=== PATIENT | male | born 1980 | race Caucasian/White ===

== ENCOUNTER 2023-08-11 10:44 | Emergency (ER) | payer OTHER, SELFPAY ==
[2023-08-11 10:45] VITALS: BP 141/74; PULSE 92; RESP 15; TEMP 36.8; O2SAT 97; BMI 25.7
[2023-08-11 11:07] LABS: POC Glucose,Bedside 125 (70-110)
--- NOTE | 2023-08-11 11:18 | CT_ITS ---
FINAL REPORT CLINICAL HISTORY: L facial numb/tingling FINDINGS: Axial images of the head were obtained without contrast. Coronal reformatted images were also obtained.This study was performed with techniques to keep radiation doses as low as reasonably achievable (ALARA). Individualized dose reduction techniques using automated exposure control or adjustment of mA and/or kV according to the patient's size were employed. There is no evidence of intracranial hemorrhage or mass. The ventricular size is within normal limits. There is no evidence of shift of the midline structures. No abnormal extra axial fluid collection is identified. No skull abnormality is seen on the bone window images. There is mild mucosal thickening in the sinuses. IMPRESSION: No acute intracranial abnormality. Reviewed, Interpreted and Dictated by Roland Horton III, MD Transcribed by Apple Warren Authenticated and [facility]
--- NOTE | 2023-08-11 11:18 | CT_ITS ---
FINAL REPORT TECHNIQUE: Thin section axial CT with IV contrast supplemented with multiplanar reconstruction under CT angiogram protocol. 3-D reconstructions were performed. This study was performed with techniques to keep radiation doses as low as reasonably achievable (ALARA). Individualized dose reduction techniques using automated exposure control or adjustment of mA and/or kV according to the patient''s size were employed. CLINICAL HISTORY: L facial numb/tingling FINDINGS: The distal vertebral, basilar and distal internal carotid arteries have an unremarkable appearance. No aneurysm is seen. Major intracranial vessels are patent without significant stenosis. IMPRESSION: There is no significant stenosis or major branch occlusion. Reviewed, Interpreted and Dictated by Roland Horton III, MD Transcribed by Apple Warren Authenticated and [facility]
--- NOTE | 2023-08-11 11:18 | CT_ITS ---
FINAL REPORT TECHNIQUE: Thin section axial CT with IV contrast supplemented with multiplanar reconstruction under CT angiogram protocol. This study was performed with techniques to keep radiation doses as low as reasonably achievable (ALARA). Individualized dose reduction techniques using automated exposure control or adjustment of mA and/or kV according to the patient''s size were employed. NASCET criteria was utilized during interpretation. CLINICAL HISTORY: L facial numb/tingling FINDINGS: Aortic arch: Arch shows no significant narrowing. Great vessel origins are widely patent. Right carotid: No significant stenosis is seen of the cervical common or internal carotid artery. Left carotid: No significant stenosis is seen of the cervical common or internal carotid artery. Vertebral: The vertebral arteries are codominant. No significant stenosis is present. IMPRESSION: There is no significant stenosis or major branch occlusion. Reviewed, Interpreted and Dictated by Roland Horton III, MD Transcribed by Apple Warren Authenticated and [facility]
--- NOTE | 2023-08-11 11:19 | XR_ITS ---
FINAL REPORT CLINICAL HISTORY: L facial numb/tingling COMPARISON: None FINDINGS: A single portable view of the chest was obtained. The heart size and pulmonary vascularity are within normal limits. The mediastinum is within normal limits. No acute pulmonary abnormality is identified. The bony thorax is intact. IMPRESSION: No active cardiopulmonary disease. Reviewed, Interpreted and Dictated by Roland Horton III, MD Transcribed by Belkys Hassan Authenticated and [facility]
--- NOTE | 2023-08-11 11:23 | PC.NURSE ---
Dr. Huerta at BS for pt eval
[2023-08-11 11:29] LABS: Chloride 101 mmol/L (98-107); Potassium 3.8 mmoL/L (3.5-5.1); Sodium 137 mmol/L (136-145)
[2023-08-11 11:31] LABS: Basophils # 0.1 K/mm3 (0-0.2); Basophils % 0.3 % (0.1-2.0); Eosinophils # 0.2 K/mm3 (0.0-0.4); Hematocrit 50.2 % (42.0-52.0); Hemoglobin 16.8 g/dL (14.1-18.0); Lymphocytes # 1.7 K/mm3 (0.7-4.5); Lymphocytes % 10.8 % (10-50); Mean Corpuscular HGB Conc 33.4 g/dL (31.8-35.4); Mean Corpuscular Hemoglobin 33.9 pg (27.0-31.2); Mean Corpuscular Volume 101.5 fl (80-94); Mean Platelet Volume 8.1 fl (7.4-10.4); Monocytes # 0.7 K/mm3 (0.1-1.0); Monocytes % 4.7 % (1.7-9.3); Neutrophils % 83.2 % (37.0-80.0); Platelet Count 215 K/mm3 (142-424); Red Blood Count 4.94 M/mm3 (4.60-6.20); White Blood Count 15.6 K/mm3 (4.8-10.8)
[2023-08-11 11:32] LABS: Alanine Aminotransferase 42 U/L (12-78); Albumin Level 4.9 g/dl (3.5-5.0); Albumin/Globulin Ratio 1.8 (1.1-1.8); Alkaline Phosphatase 76 U/L (38-126); Anion Gap 12.8 mEq/L (5-15); Aspartate Amino Transferase 38 U/L (17-59); Bilirubin,Total 0.4 mg/dl (0.2-1.3); Blood Urea Nitrogen 10 mg/dl (9-20); Calcium 9.2 mg/dl (8.4-10.2); Carbon Dioxide 27 mmol/L (22.0-30.0); Creatinine Clearance Estimated 141 mL/min (50-200); Estimated Glomerular Filt Rate 107 ml/min (>60); GFR (African American) 130 ML/MIN (>60); Globulin 2.8 g/dL (1.3-3.2); Glucose 113 mg/dl (74-100); Total Protein,Serum 7.7 g/dl (6.3-8.2)
[2023-08-11 11:33] LABS: MANUAL DIFFERENTIAL MANUAL DIFFERENTIAL (MANUAL DIFF)
--- NOTE | 2023-08-11 11:48 | ECG_ITS ---
APPROVED REPORT Exam: Resting ECG HR:76 bpm ECG Measurements Heart Rate 76 AXES NC 149 P 61 QRSd 101 QRS 71 QT 347 T 74 QTc 377 Conclusion SINUS RHYTHM NORMAL ECG UNCONFIRMED REPORT Electronically signed by : Kahlil Cleveland MD 08/12/2023 09:57:30
[2023-08-11 11:49] LABS: T4 (Thyroxine) 8.4 ug/dl (5.53-11.0)
[2023-08-11 11:53] LABS: Eosinophils % 2 % (0-3); Lymphocytes % 12 % (10-50); Monocytes % 6 % (2-9); Neutrophils % 80 % (42-76); Platelet Estimate Normal; RBC Morphology Normal; Total Cells Counted 100
--- NOTE | 2023-08-11 11:53 | PC.NURSE ---
rounded on pt, no needs at this time
[2023-08-11 12:00] VITALS: BP 120/75; PULSE 87; RESP 22; O2SAT 98
--- NOTE | 2023-08-11 12:00 | HMH.EDGENADL ---
Discharge Plan Disposition Patient Disposition: Home, Self-Care Condition: Good Prescriptions Prescriptions: New prednisone 50 mg tablet 50 mg PO DAILY 7 Days Qty: 7 0RF doxycycline hyclate 100 mg capsule 100 mg PO BID 14 Days Qty: 28 0RF erythromycin 5 mg/gram (0.5 %) ointment 1 applic Eye-Left Q8H Qty: 3.5 0RF Referrals Follow up/Referrals: Provider,Referral, MD [Primary Care Provider] - See instructions Activity Restrictions/Add. Instructions Additional Instructions/Restrictions: You were evaluated in the emergency department today. Please worm picker your prescriptions and take the full course as prescribed. Follow-up with your primary care provider for reassessment over the next 3 days. Return to the emergency department for new or worsening symptoms. Clinical Impressions Clinical Impression: Ruffin's palsy Instructions Patient Instructions: DI for [place] Palsy Discharge ED Provider: Belinda Huerta General Adult HPI General Chief complaint: Neuro Symptoms/Deficit Stated complaint: left side pain on face no change in heart Time Seen by Provider: 08/11/23 11:15 Mode of Arrival: Ambulatory Source of Information: Patient Limitations: No Limitations Description of Symptoms (Recalled from ER Triage Doc. by RN): 42 yo M presents to ED with c/o left sided facial numbness and left eye blurriness. pt reports numbness in left side of face has been ongoing for 2 days. pt reports while he was at work he began to have left vision bluriness. History of Present Illness HPI narrative: This patient is a 42-year-old male who denies significant past medical history presenting to the emergency department for evaluation with concern for left facial numbness and left eye blurriness. Patient states that the left side of his face has been numb for approximately 2 days. Today at work, he noted that his left eye was slightly blurry. Given this, he decided to come in for evaluation. No other concerns noted, such as other numbness, tingling, unilateral weakness, gait abnormality, or other concerns. He has otherwise been well. No significant past medical history, and no history of any significant family history according to patient. Related Data Previous Rx's Medication Instructions Recorded doxycycline hyclate 100 mg capsule 100 mg PO BID 14 days #28 caps 08/11/23 erythromycin 5 mg/gram (0.5 %) eye 1 applic Eye-Left Q8H #3.5 grams 08/11/23 ointment prednisone 50 mg tablet 50 mg PO DAILY 7 days #7 tabs 08/11/23 Allergies Allergy/AdvReac Type Severity Reaction Status Date / Time No Known Allergies Allergy Verified 08/11/23 11:45 [facility] Disclaimer: The information contained in this section may have been updated after the patient was seen, as this information can be updated by other users. Social History Smoking Status: Current every day smoker alcohol intake: never current occupational status: employed Travel in the last 8 weeks: None ROS Obtained: Yes All systems reviewed & no additional complaints except as documented Physical Exam General General appearance: alert and in no apparent distress Head Head exam: atraumatic and normocephalic Eye Eye exam: Present normal appearance, PERRL and EOMI ENT ENT exam: Present normal exam, normal oropharynx, mucous membranes moist and normal external ear exam Neck Neck exam: Present normal inspection, full ROM and trachea midline; Absent tenderness Chest Chest inspection: Present normal inspection and symmetric chest wall rise; Absent tenderness Respiratory Respiratory exam: Present normal lung sounds bilaterally; Absent respiratory distress, wheezes, stridor or accessory muscle use Cardiovascular Cardiovascular exam: Present regular rate and normal rhythm Abdominal Exam Abdominal exam: Present soft; Absent distention, tenderness or guarding Extremities Exam Extremities exam: Present normal inspe
--- NOTE | 2023-08-11 12:10 | PC.NURSE ---
XR AT BEDSIDE
[2023-08-11 13:23] VITALS: BP 126/79; PULSE 80; RESP 16; TEMP 36.8; O2SAT 96
[2023-08-11 13:40] LABS: Thyroid Stimulating Hormone 0.56 uIU/mL (0.465-4.68)
[2023-08-15 23:16] LABS: Lyme B. burgdorferi PCR Blood Negative (Negative)
== END 2023-08-11 13:26 | disposition home or self-care (01) ==
PROVIDERS: Emergency Provider Emergency Medicine
DX: G51.0 Bell's palsy (principal); F17.200 Nicotine dependence, unspecified, uncomplicated; R20.0 Anesthesia of skin; H53.8 Other visual disturbances; D72.829 Elevated white blood cell count, unspecified
CPT/HCPCS: 70450; 70496; 70498; 71045; 80053; 82962; 83735; 84436; 84443; 85007; 85025; 87476; 93005; 99285; Q9967

== ENCOUNTER 2024-02-27 19:10 | Emergency (ER) | payer OTHER, SELFPAY ==
[2024-02-27 19:20] VITALS: BP 149/97; PULSE 76; RESP 18; TEMP 36.6; O2SAT 97; BMI 26.4
--- NOTE | 2024-02-27 19:31 | EXP.UTC ---
Discharge Plan Disposition Patient Disposition: Home, Self-Care Condition: Good Prescriptions Prescriptions: New ibuprofen [IBU] 800 mg tablet 800 mg PO Q8HP PRN (Reason: Moderate Pain) Qty: 30 0RF Referrals Follow up/Referrals: Provider,MD Leanna [Primary Care Provider] - See instructions Jose Luis Strange MD [Staff Physician] - See instructions Activity Restrictions/Add. Instructions Additional Instructions/Restrictions: Drink plenty of fluids. Take tylenol or ibuprofen for pain or fever. I sent in a prescription for ibuprofen 800 mg to your pharmacy. Follow up with your regular doctor. Follow up with general surgery (Dr. Srtange). I put in a referral, but you need to call his office and schedule an appointment. His office phone number will be on this paperwork. GO TO THE ER FOR ANY WORSENING SYMPTOMS Clinical Impressions Clinical Impression: Hernia, inguinal, left Instructions Patient Instructions: DI for Groin Hernia, Groin Hernia -- Adult Discharge ED Provider: Zane Lund [facility] General Stated complaint: abd pain Time Seen by Provider: 02/27/24 19:31 History of Present Illness Provider Complaint: He states that for the past 2 weeks he has had left sided groin pain and intermittent left sided abdominal pain. Related Data Previous Rx's Medication Instructions Recorded ibuprofen 800 mg tablet (IBU) 800 mg PO Q8HP PRN Moderate Pain 02/27/24 #30 tabs Allergies Allergy/AdvReac Type Severity Reaction Status Date / Time No Known Allergies Allergy Verified 02/27/24 19:35 [facility] Disclaimer: The information contained in this section may have been updated after the patient was seen, as this information can be updated by other users. Social History (Updated 08/11/23 @ 16:46 by Belinda Huerta DO) Smoking Status: Current every day smoker alcohol intake: never current occupational status: employed Travel in the last 8 weeks: None ROS Obtained: Yes All systems reviewed & no additional complaints except as documented Constitutional Constitutional: Denies chills and Denies fever(s) Eyes Eyes: Denies eye discharge ENT Ears, Nose, Mouth, and Throat: Denies dizziness, Denies otalgia, Denies neck pain and Denies sore throat Cardiovascular Cardiovascular: Denies chest pain Respiratory Respiratory: Denies shortness of breath, Denies chest congestion, Denies cough, Denies stridor and Denies wheezing Gastrointestinal Gastrointestingal: Reports as per HPI; Denies nausea or vomiting Genitourinary Male Genitourinary: Reports as per HPI, Denies difficulty urinating, Denies scrotal swelling, Denies testicular mass and Denies testicular pain Musculoskeletal Musculoskeletal: Reports system reviewed and no additional complaints, except as documented, Denies arthralgias, Denies back pain and Denies neck pain Integumentary/Breasts Skin/Breast: Denies rash Neurologic Neurologic: Denies dizziness and Denies paresthesias Allergic/Immunologic Allergic/Immunologic: Denies wheezing Physical Exam General General appearance: alert and in no apparent distress Head Head exam: atraumatic, normocephalic and normal inspection Eye Eye exam: Present normal appearance, PERRL and EOMI ENT ENT exam: Present normal exam, normal oropharynx, mucous membranes moist, TM's normal bilaterally and normal external ear exam Neck Neck exam: Present normal inspection, full ROM and trachea midline; Absent meningismus or lymphadenopathy Chest Chest inspection: Present normal inspection and symmetric chest wall rise; Absent tenderness Respiratory Respiratory exam: Present normal lung sounds bilaterally; Absent respiratory distress Cardiovascular Cardiovascular exam: Present regular rate and normal rhythm; Absent JVD Abdominal Exam Abdominal exam: Present soft and normal bowel sounds; Absent distention, tenderness or guarding exam: Present normal testicular lie; Absent testicular tenderness or scrotal swelling Expanded Exam exam: Present inguinal hernia Extremities Exam Extremities exam: Present normal inspection, full ROM and normal capillary refill; Absent calf tenderness Back Exam Back exam: Present normal inspection; Absent tenderness Neurological Exam Neurological exam: Present alert and oriented X3 Psychiatric Psychiatric exam: Present normal affect and normal mood Skin Skin exam: Present warm, dry, intact and normal color Lymphatic Lymphatic Findings: no adenopathy Medical Decision Making Medical Records Medical records reviewed: No I reviewed the patient's medical records. Jorge Inquiry Pt receiving controlled substance: No Lab Data Lab results reviewed: Yes I reviewed the patient's lab results.
[2024-02-27 19:47] LABS: Apearance,Urine Clear (Clear); Color,Urine Dark Yellow (Yellow)
[2024-02-27 19:48] LABS: Bilirubin,Urine Negative (Negative); Blood, Urine Negative (Negative); Glucose,Urine (UA) Negative (Negative); Ketones,Urine Negative (Negative); Protein,Urine Negative (Negative); UTC Leukocyte Esterase,Urine Negative (Negative); UTC Nitrate,Urine Negative (Negative); Urobilinogen,Urine 0.2 EU/dl (0.2)
[2024-02-27 20:17] VITALS: BP 149/97; PULSE 76; RESP 18; TEMP 36.6; O2SAT 97
== END 2024-02-27 20:17 | disposition home or self-care (01) ==
PROVIDERS: Emergency Provider Nurse Practitioner Family
DX: R10.32 Left lower quadrant pain (principal); K40.90 Unilateral inguinal hernia, without obstruction or gangrene, not specified as recurrent
CPT/HCPCS: 81003; 99204; 99212; G0463

== ENCOUNTER 2024-03-13 15:18 | Outpatient (CLI) | payer OTHER, SELFPAY ==
[2024-03-13 15:25] LABS: Microscopic, Urine URINE MICROSCOPIC (MICROSCOPIC)
[2024-03-13 16:19] LABS: Basophils # 0.1 K/mm3 (0-0.2); Basophils % 0.7 % (0.1-2.0); Eosinophils # 0.2 K/mm3 (0.0-0.4); Eosinophils % 2.1 % (0.1-12.0); Lymphocytes # 2.5 K/mm3 (0.7-4.5); Lymphocytes % 31.8 % (10-50); Mean Corpuscular HGB Conc 32.6 g/dL (31.8-35.4); Mean Corpuscular Hemoglobin 34.5 pg (27.0-31.2); Mean Corpuscular Volume 105.6 fl (80-94); Mean Platelet Volume 8.4 fl (7.4-10.4); Monocytes # 0.6 K/mm3 (0.1-1.0); Monocytes % 7.8 % (1.7-9.3); Neutrophils # 4.5 K/mm3 (1.8-7.8); Neutrophils % 57.5 % (37.0-80.0); Platelet Count 214 K/mm3 (142-424); Red Blood Count 4.93 M/mm3 (4.60-6.20); Red Cell Distribution Width 13.7 % (11.5-17.5); White Blood Count 7.7 K/mm3 (4.8-10.8)
[2024-03-13 16:32] LABS: Anion Gap 8.4 mEq/L (5-15); Blood Urea Nitrogen 13 mg/dl (9-20); Calcium 10.1 mg/dl (8.4-10.2); Carbon Dioxide 32 mmol/L (22.0-30.0); Chloride 106 mmol/L (98-107); Estimated Glomerular Filt Rate 107 ml/min (>60); GFR (African American) 129 ML/MIN (>60); Glucose 91 mg/dl (74-100); Potassium 5.4 mmoL/L (3.5-5.1); Sodium 141 mmol/L (136-145)
[2024-03-13 17:02] LABS: Appearance,Urine CLEAR (Clear); Bilirubin,Urine Negative (Negative); Blood, Urine Negative (Negative); Color,Urine YELLOW (Yellow); Glucose,Urine (UA) Negative (Negative); Ketones,Urine Negative (Negative); Leukocyte Esterase,Urine Negative (Negative); Nitrate,Urine Negative (Negative); Protein,Urine Negative (Negative); Urobilinogen,Urine 0.2 EU/dl (0.2)
[2024-03-13 19:45] LABS: Squamous Epithelial Cell,Urine Occasional #/hpf (0-5)
== END 2024-03-13 23:59 | disposition home or self-care (01) ==
LOC: LAB 15:19
PROVIDERS: Visit Provider Surgery
DX: K40.90 Unilateral inguinal hernia, without obstruction or gangrene, not specified as recurrent (principal)
CPT/HCPCS: 36415; 80048; 81001; 85025

== ENCOUNTER 2024-03-28 07:29 | Day surgery (SDC) | payer OTHER, SELFPAY ==
[2024-03-26 14:10] VITALS: BMI 26.1
[2024-03-28] VITALS (10 sets, daily range): BP systolic 113–134; BP diastolic 56–83; PULSE 61–78; RESP 16–20; TEMP 36.3–36.6; O2SAT 95–100; BMI 26.1
[2024-03-28] MEDS: LACTATED RINGERS 1000ML 1,000 ML 25 ML IV (07:40)
--- NOTE | 2024-03-28 08:30 | P.PNANES_ITS ---
[facility] Disclaimer: The information contained in this section may have been updated after the patient was seen, as this information can be updated by other users. Surgical History (Updated 03/13/24 @ 14:33 by ADRIEL Johns) History of wisdom tooth extraction History of vasectomy Social History (Updated 03/28/24 @ 07:41 by Pauline Drake RN) Smoking Status: Current every day smoker alcohol intake: never substance use type: marijuana current occupational status: employed Travel in the last 8 weeks: None [facility] Anesthesia Checklist Patient Identification Patient Identification: Arm Band Structural Data Admitted From: Home Planned Operative Procedure/s: Left Open Inguinal Hernia Repair Consent for Planned Operative Procedure(s) Verified: Yes Verified Documents: Surgical Consent and History and Physical NPO Status Verified Time NPO: 00:00 Additional verifications Anesthesia Reactions: No Hx Blood Transfusions: No Blood Transfusion Reaction: No Airway Assessment Mallampati Score:: Class II C-Spine Mobility Assessed: Yes TMJ Mobility Assessed: Yes Dentition: Good Dentition Neurological Assessment Level of Consciousness: Awake, Alert and Appropriate Anesthesia Plan Anesthesia Risk discussed: Yes Anesthesia Plan: Verified ASA Class: II Anesthesia Type: General
[2024-03-28] MEDS: CEFAZOLIN SODIUM 2 GM in 0.9 % SODIUM CHLORIDE 100 ML IV (09:01)
[2024-03-28] MEDS: LIDOCAINE 1% 20ML MDV 20 ML (09:21)
--- NOTE | 2024-03-28 10:52 | P.OP_ITS ---
Date of procedure: 03/28/24 Pre-op Diagnosis:: Left inguinal hernia Post-op Diagnosis:: Same Procedure performed:: Open left inguinal hernia repair Surgeon:: Jose Luis Strange MD DRAIN TILE PRESS OPERATOR:: Silviano Miller Anesthesia: ANNA MARIE Estimated blood loss (mL): 15 Operative findings:: Severe soft tissue stranding/chronic inflammatory changes throughout inguinal canal Operative note:: After informed consent was obtained the patient was taken to the operating room and placed in the supine position. General anesthesia was induced and his abdomen and groin/scrotum were prepped and draped in a sterile fashion. After infiltration with local anesthetic an oblique incision was made in the left groin. Electrocautery was utilized to dissect through Rohan's fascia to the level of the external aponeurosis. The external aponeurosis was sharply opened to the level of the external ring. The contents of the canal were carefully elevated. Severe soft tissue thickening/chronic inflammatory changes were noted. A cord lipoma was resected. The hernia sac was carefully elevated and from surrounding tissue with a combination of sharp dissection, blunt dissection, and electrocautery. The hernia sac was returned to the abdominal cavity. An extra-large PerFix plug was secured in position with interrupted Ethibond. The PerFix overlay was then secured to the shelving edge inferiorly and fascial margin superiorly with interrupted Ethibond. The external aponeurosis was reapproximated with running Vicryl suture. Rohan's fascia was closed in the same manner. Skin was then reapproximated with the INSORB stapling device. Dressings were applied and patient was transferred to recovery in stable condition. Condition: stable Disposition: PACU Specimens:: None Complications:: No immediate
--- NOTE | 2024-03-28 11:02 | P.PNANES_ITS ---
[facility] Anesthesia Record Part I Anesthesia Record I Intake, IV Amount: 1,100 Hydration: Adequate Estimated blood loss (mL): 10 Urine output (mL): 100 Blood Products used (#): none Blood Pressure: 128/67 SaO2: 98 Pulse Rate: 66 Airway Patency: Patent Respiratory Rate: 16 Temperature: 97.9 F Patient is:: Drowsy and Stable Stable to PACU at:: 10:50
[2024-03-28 12:36] LABS: Microscopic,Cath URINE MICROSCOPIC (MICROSCOPIC)
[2024-03-28 16:14] LABS: Appearance,Urine/Cath CLEAR (Clear); Bilirubin,Cath Negative (Negative); Blood, Urine/Cath Negative (Negative); Color,Urine/Cath YELLOW (Yellow); Glucose,Urine/Cath (UA) Negative (Negative); Ketones,Urine/Cath Negative (Negative); Leukocyte Esterase,Cath Negative (Negative); Nitrate,Cath Negative (Negative); Protein,Urine/Cath Negative (Negative); Specific Gravity, Urine/Cath >= 1.030 (1.005-1.030); Urobilinogen,Cath 0.2 EU/dl (0.2)
[2024-03-28 18:35] LABS: CA Oxalate Crystals,Ur/Cath 1+ /lpf
[2024-03-29 09:50] VITALS: BP 134/75; PULSE 72; RESP 19; TEMP 36.6; O2SAT 96
--- NOTE | 2024-03-29 09:50 | EXP.ANES.II ---
[facility] Anesthesia Record Part II Anesthesia Record Part II Discharge Time: 11:20 Destination: Surgical Day Care (OP Surgery) PACU nurse assessment reviewed?: Yes Patient Condition:: Good Anesthesia Complications:: None Swallowing reflex intact?: Yes Airway Patency: Patent Cyanosis?: No Blood Pressure: 134/75 SaO2: 96 Respiratory Rate: 19 Pulse Rate: 72 Temperature: 98 F Mental Status: Alert & Oriented Pain level:: 0 Nausea and/or vomitting:: None Intake, IV Amount: 0 Hydration: Adequate
== END 2024-03-28 12:10 | disposition home or self-care (01) ==
PROVIDERS: Visit Provider Surgery
PROC: (CPT 49505; principal; 2024-03-28 09:15)
DX: K40.90 Unilateral inguinal hernia, without obstruction or gangrene, not specified as recurrent (principal)
CPT/HCPCS: 49505; 81001; 96374; J3490; J0690; J1100; J1885; J2250; J2405; J3010; J7120

== ENCOUNTER 2024-07-28 20:30 | Emergency (ER) | payer OTHER, SELFPAY ==
[2024-07-28 20:31] VITALS: BP 118/68; PULSE 78; RESP 16; TEMP 36.9; O2SAT 96; BMI 24.2
[2024-07-28] MEDS: TET/DIPHTH/PERT-ADULT 0.5ML SYRINGE 0.5 ML IM (22:20)
[2024-07-28] MEDS: TETRACAINE 0.5% OPTH SOL 15ML OP (22:36)
[2024-07-28] MEDS: FLUORESCEIN SODIUM 1MG STRIP 1 MG OP (22:36)
[2024-07-28] MEDS: EYE WASH IRRIGATION SOLN 118ML BOTTLE 120 ML OP (22:51)
[2024-07-28] MEDS: ERYTHROMYCIN BASE 1 GM OINT...G. 0.5 GM OP (22:51)
[2024-07-28 22:54] VITALS: BP 118/68; PULSE 78; RESP 18; TEMP 36.9; O2SAT 96
--- NOTE | 2024-07-28 23:12 | HMH.EDGENADL ---
Discharge Plan Disposition Patient Disposition: Home, Self-Care Condition: Good Prescriptions Prescriptions: New erythromycin 5 mg/gram (0.5 %) ointment 1 applic ophthalmic (eye) Q6H 7 Days Qty: 3.5 0RF Referrals Follow up/Referrals: Provider,Referral, MD [Primary Care Provider] - See instructions Activity Restrictions/Add. Instructions Additional Instructions/Restrictions: You were seen for a corneal abrasion. Please call Dr. Agee at [address] [place] [address] tomorrow to schedule a follow up appointment for tomorrow. Return to ED if you have any change in vision. Clinical Impressions Clinical Impression: Abrasion, corneal Instructions Patient Instructions: DI for Corneal Abrasion Print Language Print Language: Stateless Discharge ED Provider: Satya Sigala General Adult HPI <TRISH Sprague - Last Filed: 07/28/24 23:17> General Chief complaint: Eye Problems Stated complaint: AO 07/28/24 1730 metal in right eye Time Seen by Provider: 07/28/24 21:35 Mode of Arrival: Ambulatory Source of Information: Patient Limitations: No Limitations Description of Symptoms (Recalled from ER Triage Doc. by RN): Patient ambulatory to ED with complaints of metal to right eye approx 1700. Patient was grinding metal when a piece of metal flew into right eye. Patient denies loos of vision but irritation and blurryness noted. 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 He reports that he was wearing safety goggles however the object went over the goggles. He reports that he did irrigate the eye in the shower and applied some saline drops. He is unsure when his last tetanus was. Denies any fevers or vomiting. complaint: eye injury Onset (ago): hour(s) Location: eyes (right) Radiation: non-radiation Severity: mild Consistency: constant Relieving factors: none Exacerbating factors: none Treatments prior to arrival: none Related Data Previous Rx's ?Medication ?Instructions ?Recorded erythromycin 5 mg/gram (0.5 %) eye 1 applic ophthalmic (eye) Q6H 7 07/28/24 ointment days #3.5 grams Allergies Allergy/AdvReac Type Severity Reaction Status Date / Time No Known Allergies Allergy Verified 04/10/24 09:46 PFS <TRISH Sprague - Last Filed: 07/28/24 23:17> [facility] Disclaimer: The information contained in this section may have been updated after the patient was seen, as this information can be updated by other users. Surgical History (Updated 04/10/24 @ 09:47 by ADRIEL Johns) History of inguinal hernia repair History of wisdom tooth extraction History of vasectomy Social History (Updated 07/28/24 @ 23:17 by TRISH Sprague) Smoking Status: Current every day smoker alcohol intake: never substance use type: marijuana current occupational status: employed Travel in the last 8 weeks: None <TRISH Sprague Last Filed: 07/28/24 23:17> ROS Obtained: Yes All systems reviewed & no additional complaints except as documented Physical Exam <TRISH Sprague - Last Filed: 07/28/24 23:17> General General appearance: alert and in no apparent distress Head Head exam: atraumatic and normocephalic Eye Eye exam: Present EOMI and other (Right eye fluorescein uptake on the right iris at approximately 10 o clock. No FB noted. IOP 11-13. EOMI. No conjunctival injection. No FB under the eyelids. ) Chest Chest inspection: Present symmetric chest wall rise Respiratory Respiratory exam: Present normal lung sounds bilaterally; Absent wheezes or stridor Cardiovascular Cardiovascular exam: Present regular rate and normal rhythm; Absent systolic murmur Extremities Exam Extremities exam: Present full ROM Neurological Exam Neurological exam: Present alert and oriented X3 Psychiatric Psychiatric exam: Present normal affect and normal mood Skin Skin exam: Present warm, dry and intact Medical Decision Making <TRISH Sprague - Last Filed: 07/28/24 23:17> Medical Records Screening: Per USPSTF and CDC recommendations, given the prevalence of disease in our region, it is our hospital?s policy to screen for HIV and viral Hepatitis for all patients aged 18 and over and those with ongoing risk factors. Jorge Inquiry Pt receiving controlled substance: No Vital Signs: 07/28/24 20:31 07/28/24 22:54 Temperature 98.4 F 98.4 F Temperature Source Oral Pulse Rate 78 Pulse Rate [Right] 78 Respiratory Rate 16 18 Blood Pressure 118/68 Blood Pressure [Left Arm] 118/68 Blood Pressure Mean [Left Arm] 84 Blood Pressure Source [Left Arm] Automatic Cuff Blood Pressure Position [Left Arm] Sitting 02 Sat by Pulse Oximetry 96 Oxygen Delivery Method Room Air Orders (Tests/Meds): ED MEDICATIONS Discontinued Medications Generic Name Dose Route Start Last Admin Trade Name Gui PRN Reason Stop Dose Admin Erythromycin 0.5 gm 07/28/24 22:47 07/28/24 22:51 Erythromycin Base 1 Gm Oint...G. OP 07/28/24 22:48 0.5 gm ONCE ONE Administration Eye Irrigation Solution 120 ml 07/28/24 22:47 07/28/24 22:51 Eye Wash Irrigation Soln 118ml Bottle OP 07/28/24 22:48 120 ml ONCE ONE Administration Fluorescein Sodium 1 mg 07/28/24 21:36 07/28/24 22:36 Fluorescein Sodium 1mg Strip OP 07/28/24 21:37 1 mg ONCE ONE Administration Tetanus/Reduced Diphtheria/Acell Pertussis 0.5 ml 07/28/24 22:00 07/28/24 22:20 Tet/Diphth/Pert-Adult 0.5ml Syringe IM 07/28/24 22:01 0.5 ml .ONCE ONE Administration Tetracaine HCl 0 ml 07/28/24 21:36 07/28/24 22:36 Tetracaine 0.5% Opth Kassie 15ml OP 07/28/24 21:37 15 ml ONCE ONE Administration Medical Decision Narrative: In summary patient is a 43-year-old who presents the emergency department for evaluation of right eye pain. Patient is hemodynamically stable upon arrival, afebrile. Fluorescein uptake on the right iris. Differential diagnosis includes corneal abrasion, retained foreign body, risk. No foreign body noted on exam. Tetanus updated. Given this patient is appropriate for discharge with erythromycin eye ointment and follow-up with optometry tomorrow. <Satya Sigala MD - Last Filed: 07/28/24 23:29> Vital Signs: 07/28/24 20:31 07/28/24 22:54 Temperature 98.4 F 98.4 F Temperature Source Oral Pulse Rate 78 Pulse Rate [Right] 78 Respiratory Rate 16 18 Blood Pressure 118/68 Blood Pressure [Left Arm] 118/68 Blood Pressure Mean [Left Arm] 84 Blood Pressure Source [Left Arm] Automatic Cuff Blood Pressure Position [Left Arm] Sitting 02 Sat by Pulse Oximetry 96 Oxygen Delivery Method Room Air Orders (Tests/Meds): ED MEDICATIONS Discontinued Medications Generic Name Dose Route Start Last Admin Trade Name Gui PRN Reason Stop Dose Admin Erythromycin 0.5 gm 07/28/24 22:47 07/28/24 22:51 Erythromycin Base 1 Gm Oint...G. OP 07/28/24 22:48 0.5 gm ONCE ONE Administration Eye Irrigation Solution 120 ml 07/28/24 22:47 07/28/24 22:51 Eye Wash Irrigation Soln 118ml Bottle OP 07/28/24 22:48 120 ml ONCE ONE Administration Fluorescein Sodium 1 mg 07/28/24 21:36 07/28/24 22:36 Fluorescein Sodium 1mg Strip OP 07/28/24 21:37 1 mg ONCE ONE Administration Tetanus/Reduced Diphtheria/Acell Pertussis 0.5 ml 07/28/24 22:00 07/28/24 22:20 Tet/Diphth/Pert-Adult 0.5ml Syringe IM 07/28/24 22:01 0.5 ml .ONCE ONE Administration Tetracaine HCl 0 ml 07/28/24 21:36 07/28/24 22:36 Tetracaine 0.5% Opth Kassie 15ml OP 07/28/24 21:37 15 ml ONCE ONE Administration Medical Decision Narrative: In summary patient is a 43-year-old who presents the emergency department for evaluation of right eye pain. Patient is hemodynamically stable upon arrival, afebrile. Fluorescein uptake on the right iris. Differential diagnosis includes corneal abrasion, retained foreign body, risk. No foreign body noted on exam. Tetanus updated. Given this patient is appropriate for discharge with erythromycin eye ointment and follow-up with optometry tomorrow. I was consulted by the PAULINE, and we discussed the complexity of the problems being addressed. I approved the treatment and management plan for this patient's care in the Emergency Department, thus performing a substantive portion of the medical decision making. Satya Sigala MD Critical Care <TRISH Sprague - Last Filed: 07/28/24 23:17> Critical Care Time Critical Care Time: No
== END 2024-07-28 22:55 | disposition home or self-care (01) ==
PROVIDERS: Emergency Provider Emergency Medicine
DX: S05.01XA Injury of conjunctiva and corneal abrasion without foreign body, right eye, initial encounter (principal); H57.11 Ocular pain, right eye; H53.8 Other visual disturbances; Z23 Encounter for immunization; W44.8XXA Other foreign body entering into or through a natural orifice, initial encounter; Y93.89 Activity, other specified; Y92.89 Other specified places as the place of occurrence of the external cause
CPT/HCPCS: 90471; 90715; 99284